=== PATIENT | female | born 1955 | race Caucasian/White ===

== ENCOUNTER 2016-12-15 12:46 | Emergency (ER) | payer BC ==
[2016-12-15 14:51] LABS: Basophils % (A) 0 %; CH 28.5; Eosinophils % (A) 0 %; HCT 36.9 % (34.0-46.0); HDW 2.78; HGB 12.3 gm/dL (11.4-16.0); Luc # (Auto) 0.12; Luc % (Auto) 1; Lymphocytes # (A) 0.5 k/uL (1.0-4.8); Lymphocytes % (A) 6 %; MCH 28.8 pg (25.0-35.0); MCHC 33.3 g/dL (31.0-37.0); MCV 86.6 fL (80.0-100.0); Mean Platelet Volume 8.4; Monocytes # (A) 0.3 k/uL (0-1.0); Monocytes % (A) 4 %; Neutrophils # (A) 7.9 k/uL (1.3-7.7); Neutrophils % (A) 89 %; RBC 4.26 m/uL (3.80-5.40); RDW 14.6 % (11.5-15.5); WBC 8.9 k/uL (3.8-10.6); WBC (Perox) 8.72
--- NOTE | 2016-12-15 15:06 | XR ---
EXAMINATION TYPE: XR chest 2V DATE OF EXAM: 12/15/2016 3:03 PM COMPARISON: 12/09/2014 HISTORY: Shortness of breath TECHNIQUE: Frontal and lateral views of the chest are obtained. FINDINGS: Scattered senescent parenchymal changes noted. Hyperinflation compatible with COPD. Port-A-Cath are u nchanged. No evidence for infiltrate. No evidence for atelectasis. Heart size is stable. Mediastinal structures are stable and grossly unremarkable. No evidence for hilar prominence. Degenerative changes dorsal spine. IMPRESSION: 1. No evidence for acute pulmonary disease.
[2016-12-15 15:08] LABS: Calcium 9.4 mg/dL (8.4-10.2); Potassium 4.7 mmol/L (3.5-5.1); Total Bilirubin 0.7 mg/dL (0.2-1.3); Total Protein 6.7 g/dL (6.3-8.2)
--- NOTE | 2016-12-15 15:09 | XR ---
EXAMINATION TYPE: XR abdomen 2V DATE OF EXAM: 12/15/2016 3:03 PM COMPARISON: NONE HISTORY: Pain TECHNIQUE: Single supine KUB image of the abdomen is obtained FINDINGS: Small bowel demonstrates no evidence for dilatation or air fluid levels. Gas and fecal material is seen in non-distended colon. No convincing evidence for pneumoperitoneum. No unusual calcifications. The lung bases are clear. The osseous structures are intact. IMPRESSION: 1. Overall nonobstructive bowel gas pattern.
[2016-12-15 15:29] LABS: Amorphous Sediment,Urine Occasional /hpf; Appearance,Urine Cloudy (Clear); Bacteria,Urine Few /hpf; Bilirubin,Urine Negative (Negative); Glucose,Urine (UA) Negative (Negative); Ketones,Urine Negative (Negative); Leukocyte Esterase,Urine Negative (Negative); Mucus,Urine Rare /hpf; Nitrite,Urine Negative (Negative); PH, Urine 6.5 (5.0-8.0); Particle Count 15728; Protein,Urine Negative (Negative); RBC,Urine 8 /hpf (0-5); Specific Gravity,Urine 1.012 (1.001-1.035); Squamous Epithelial Cell,Urine 5 /hpf (0-4); UA Billing (MACRO vs. MICRO) MICRO; Urobilinogen,Urine <2.0 mg/dL (<2.0); WBC,Urine 7 /hpf (0-5)
--- NOTE | 2016-12-15 15:31 | ED ---
General Adult HPI - General Chief complaint: Nausea/Vomiting/Diarrhea Stated complaint: Vomiting Time Seen by Provider: 12/15/16 14:03 Source: patient Mode of arrival: ambulatory Limitations: no limitations - Related Data Home Medications Medication Instructions Recorded Confirmed Acai Shearer Extract [Acai] 2,000 mg PO QAM 12/15/16 12/15/16 Ascorbic Acid [Vitamin C with Cinthia 500 mg PO QAM 12/15/16 12/15/16 Hips] Calcium Carb/Magnesium Cmb #10 1 tab PO QAM 12/15/16 12/15/16 [Dusty-Mag 500-250 MG Chewable] Docusate [Colace] 100 mg PO QAM 12/15/16 12/15/16 Ginkgo Biloba Mondamin Extract [Ginkgo] 120 mg PO QAM 12/15/16 12/15/16 Gluc/Blake-MSM#1/C/Claudio/Ba/Bor 2 tab PO QAM 12/15/16 12/15/16 [Glucosamine-Chondroitin Tablet] Milk Thistle Extract 1,000 mg PO QAM 12/15/16 12/15/16 Mv,Ca,Min/Folic Acid/Vit K1 1 tab PO QAM 12/15/16 12/15/16 [One-A-Day Women's 50 Plus Tab] Naproxen Sodium [Aleve] 220 mg PO BID 12/15/16 12/15/16 Occuvite 1 cap PO QAM 12/15/16 12/15/16 [place] 3-6-9 1,500 mg PO QAM 12/15/16 12/15/16 Omeprazole 20 mg PO QAM 12/15/16 12/15/16 Vitamin E With Selenium 400 units PO QAM 12/15/16 12/15/16 amLODIPine [Norvasc] 5 mg PO QAM 12/15/16 12/15/16 Previous Rx's Medication Instructions Recorded Ciprofloxacin HCl [Cipro] 500 mg PO Q12HR #14 tablet 12/15/16 Trimethobenzamide [Tigan] 300 mg PO TID PRN #6 capsule 12/15/16 Allergies Allergy/AdvReac Type Severity Reaction Status Date / Time latex Allergy Rash/Hives Verified 12/15/16 14:20 Review of Systems ROS Statement: Those systems with pertinent positive or pertinent negative responses have been documented in the HPI. ROS Other: All systems not noted in ROS Statement are negative. Past Medical History Past Medical History: Cancer, GERD/Reflux, Hypertension, Osteoarthritis (OA), Sleep Apnea/CPAP/BIPAP Additional Past Medical History / Comment(s): DX WITH UTERINE CA, hiatal hernia , uses CPAP. Chemotherapy and radiation initiated in 2014. Radiation implant surgically implanted in uterus in January 2015 History of Any Multi-Drug Resistant Organisms: None Reported Past Surgical History: Bladder Surgery, Section, Cholecystectomy, Hysterectomy, Orthopedic Surgery Additional Past Surgical History / Comment(s): HEMORROIDECTOMY, RT ANKLE ORIF WITH PIN, bladder suspension, rectocele repair Past Anesthesia/Blood Transfusion Reactions: Motion Sickness Past Psychological History: No Psychological Hx Reported Smoking Status: Former smoker Past Alcohol Use History: Rare Past Drug Use History: None Reported - Past Family History Mother Sister(s) Family Medical History: Cancer Father Brother(s) Family Medical History: Cancer General Exam Limitations: no limitations Course Vital Signs 12/15/16 12:57 Temperature 99.2 F Pulse Rate 102 H Respiratory 18 Rate Blood Pressure 177/78 O2 Sat by Pulse 95 Oximetry Medical Decision Making - Medical Decision Making Lab workup is negative x-rays are satisfactory at this point do not believe we need to do a computed tomography scan history suggestive of mild diverticulitis we'll treat with Cipro follow-up with her doctor in 2-3 days return if worse and would do a CT if worsening or no of a white count. - Lab Data Result diagrams: 12/15/16 14:45 12/15/16 14:45 Lab Results 12/15/16 12/15/16 12/15/16 Range/Units 14:45 14:45 15:14 WBC 8.9 (3.8-10.6) k/uL RBC 4.26 (3.80-5.40) m/uL Hgb 12.3 (11.4-16.0) gm/dL Hct 36.9 (34.0-46.0) % MCV 86.6 (80.0-100.0) fL MCH 28.8 (25.0-35.0) pg MCHC 33.3 (31.0-37.0) g/dL RDW 14.6 (11.5-15.5) % Plt Count 128 L (150-450) k/uL Neutrophils % 89 % Lymphocytes % 6 % Monocytes % 4 % Eosinophils % 0 % Basophils % 0 % Neutrophils # 7.9 H (1.3-7.7) k/uL Lymphocytes # 0.5 L (1.0-4.8) k/uL Monocytes # 0.3 (0-1.0) k/uL Eosinophils # 0.0 (0-0.7) k/uL Basophils # 0.0 (0-0.2) k/uL Sodium 140 (137-145) mmol/L Potassium 4.7 (3.5-5.1) mmol/L Chloride 105 (98-107) mmol/L Carbon Dioxide 24 (22-30) mmol/L Anion Gap 11 mmol/L BUN 26 H (7-17) mg/dL Creatinine 1.15 H (0.52-1.04) mg/dL Est GFR (MDRD) Af Amer 58 (>60 ml/min/1.73 sqM) Est GFR (MDRD) Non-Af 48 (>60 ml/min/1.73 sqM) Glucose 116 H (74-99) mg/dL Calcium 9.4 (8.4-10.2) mg/dL Total Bilirubin 0.7 (0.2-1.3) mg/dL AST 29 (14-36) U/L ALT 28 (9-52) U/L Alkaline Phosphatase 123 (38-126) U/L Total Protein 6.7 (6.3-8.2) g/dL Albumin 3.8 (3.5-5.0) g/dL Amylase 36 (30-110) U/L Lipase 25 (23-300) U/L Urine Color Yellow Urine Appearance Cloudy H (Clear) Urine pH 6.5 (5.0-8.0) Ur Specific [place] 1.012 (1.001-1.035) Urine Protein Negative (Negative) Urine Glucose (UA) Negative (Negative) Urine Ketones Negative (Negative) Urine Blood Trace H (Negative) Urine Nitrate Negative (Negative) Urine Bilirubin Negative (Negative) Urine Urobilinogen <2.0 (<2.0) mg/dL Ur Leukocyte Esterase Negative (Negative) Urine RBC 8 H (0-5) /hpf Urine WBC 7 H (0-5) /hpf Ur Squamous Epith Cells 5 H (0-4) /hpf Amorphous Sediment Occasional H (None) /hpf Urine Bacteria Few H (None) /hpf Urine Mucus Rare H (None) /hpf - Radiology Data Radiology results: report reviewed Chest x-ray no significant abnormalities, no calcifications or obstruction on the abdominal film Disposition Clinical Impression: Diverticulitis Disposition: HOME SELF-CARE Condition: Good Instructions: Acute Nausea and Vomiting (ED), Diverticulitis (ED) Prescriptions: Ciprofloxacin HCl [Cipro] 500 mg PO Q12HR #14 tablet Trimethobenzamide [Tigan] 300 mg PO TID PRN #6 capsule PRN Reason: Nausea Referrals: Gala Hogue MD [Primary Care Provider] - 1-2 days Time of Disposition: 15:42
[2016-12-15 16:08] VITALS: BP 160/67; PULSE 94; RESP 14; TEMP 98.4
== END 2016-12-15 16:08 | disposition home or self-care (01) ==
LOC: EC 12:46
DX: K57.92 Diverticulitis of intestine, part unspecified, without perforation or abscess without bleeding (principal); I10 Essential (primary) hypertension; K44.9 Diaphragmatic hernia without obstruction or gangrene; Z79.899 Other long term (current) drug therapy; Z85.42 Personal history of malignant neoplasm of other parts of uterus; Z92.3 Personal history of irradiation; Z92.21 Personal history of antineoplastic chemotherapy; Z87.891 Personal history of nicotine dependence; Z91.040 Latex allergy status
CPT/HCPCS: 36415; 71020; 74020; 80053; 81001; 82150; 83690; 85025; 87077; 87086; 87186; 99285

== ENCOUNTER → 2017-03-11 | Outpatient (CLI) | payer MEDICARE ==
--- NOTE | 2017-03-12 09:15 | MM ---
Reason for exam: screening (asymptomatic). Last mammogram was performed 1 year and 6 months ago. History: Patient is postmenopausal, has history of endometrial cancer at age 59, and had first child at age 32. Family history of breast cancer in sister at age 49, breast cancer in sister at age 37, breast cancer in brother at age 62, and premenopausal breast cancer in mother at age 40. Stereotactic core biopsy of the right breast, March 15, 2004. Core biopsy of the right breast. Physical Findings: A clinical breast exam by your physician is recommended on an annual basis and results should be correlated with mammographic findings. MG 3D Screening Mammo W/Cad Bilateral CC and MLO view(s) were taken. Prior study comparison: September 11, 2015, bilateral MG screening mammo w CAD. July 25, 2014, bilateral MG screening mammo w CAD. The breast tissue is almost entirely fat. No significant changes when compared with prior studies. ASSESSMENT: Benign, BI-RAD 2 RECOMMENDATION: Routine screening mammogram of both breasts in 1 year.
== END | disposition home or self-care (01) ==
LOC: RADMAMWWP 11:32
PROVIDERS: ATTEND Internal Medicine
DX: Z12.31 Encounter for screening mammogram for malignant neoplasm of breast (principal)
CPT/HCPCS: 77063; G0202

== ENCOUNTER → 2017-04-17 | Outpatient (CLI) | payer MEDICARE ==
--- NOTE | 2017-04-18 07:41 | XR ---
Right knee HISTORY: Pain 3 views of the right knee No comparisons Bone mineralization, joint spaces and alignment are relatively maintained, mild joint space loss susp ected in the medial compartment. No sizable joint effusion. No fracture or dislocation. Soft tissues are normal. IMPRESSION: No acute abnormality. Mild osteoarthritic change suspected.
== END ==
LOC: RADXRYALE 13:41
PROVIDERS: ATTEND Internal Medicine
DX: M25.561 Pain in right knee (principal)

== ENCOUNTER → 2018-07-14 | Outpatient (CLI) | payer MEDICARE, BC ==
--- NOTE | 2018-07-15 09:17 | MM ---
Reason for exam: screening (asymptomatic). Last mammogram was performed 1 year and 4 months ago. History: Patient is postmenopausal, has history of endometrial cancer at age 59, and had first child at age 32. Family history of breast cancer in sister at age 49, breast cancer in sister at age 37, breast cancer in brother at age 62, and premenopausal breast cancer in mother at age 40. Stereotactic core biopsy of the right breast, March 15, 2004. Core biopsy of the right breast. Physical Findings: A clinical breast exam by your physician is recommended on an annual basis and results should be correlated with mammographic findings. MG 3D Screening Mammo W/Cad Bilateral CC and MLO view(s) were taken. Prior study comparison: March 11, 2017, bilateral MG 3d screening mammo w/cad. September 11, 2015, bilateral MG screening mammo w CAD. There are scattered fibroglandular densities. There is no discrete abnormality. No significant changes when compared with prior studies. ASSESSMENT: Negative, BI-RAD 1 RECOMMENDATION: Routine screening mammogram of both breasts in 1 year.
== END | disposition home or self-care (01) ==
LOC: RADMAMWWP 10:56
PROVIDERS: ATTEND Internal Medicine
DX: Z12.31 Encounter for screening mammogram for malignant neoplasm of breast (principal)
CPT/HCPCS: 77063; 77067

== ENCOUNTER → 2019-02-10 | Outpatient (CLI) | payer MEDICARE, BC ==
--- NOTE | 2019-02-10 16:36 | XR ---
Right knee HISTORY: Right knee pain 3 views of the right knee Bone mineralization and alignment are maintained. There is mild joint space loss in the medial compar tment with marginal spurring. No evident joint effusion. IMPRESSION: Suspect some mild osteoarthritis.
== END | disposition home or self-care (01) ==
LOC: RADXRYALE 15:12
PROVIDERS: ATTEND Internal Medicine
DX: M17.11 Unilateral primary osteoarthritis, right knee (principal)

== ENCOUNTER → 2019-05-12 | Outpatient (CLI) | payer MEDICARE, BC ==
--- NOTE | 2019-05-12 09:57 | US ---
EXAMINATION TYPE: US abdomen complete DATE OF EXAM: 05/12/2019 COMPARISON: CT 08/05/2014 CLINICAL HISTORY: R10.9 abdominal pain, nausea. Cholecystectomy. Patient is morbidly obese EXAM MEASUREMENTS: Liver Length: 14.3 cm Gallbladder Wall: Surgically absent CBD: 0.4 cm Spleen: 13.0 cm Right Kidney: 10.3 x 4.5 x 4.8 cm Left Kidney: 10.3 x 4.2 x 3.8 cm Pancreas: wnl Liver: Heterogeneous Gallbladder: Surgically absent Evidence for sonographic Pappas's sign: No CBD: wnl as visualized, distal portion obscured by bowel gas Spleen: Measuring upper limits of normal Right Kidney: No hydronephrosis or masses seen Left Kidney: No hydronephrosis or masses seen Upper IVC: wnl Abd Aorta: No sonographic evidence for AAA. Limited exam due to overlying bowel gas The liver is heterogeneous which mass or ductal dilatation on images saved. The intrahepatic portion of the IVC and visualized portion of abdominal aorta are within normal limits. Common bile duct is u nremarkable. The visualized portions of the pancreas are homogenous. The spleen is measuring upper limits of normal. Kidneys are symmetric and free of hydronephrosis. No renal lesions are seen. IMPRESSION: Suboptimal study without suspicious acute finding identified.
== END | disposition home or self-care (01) ==
LOC: RADUSWWP 07:56
PROVIDERS: ATTEND Internal Medicine
DX: R10.9 Unspecified abdominal pain (principal)
CPT/HCPCS: 76700

== ENCOUNTER → 2019-07-20 | Outpatient (CLI) | payer MEDICARE, BC ==
--- NOTE | 2019-07-21 11:32 | MM ---
Reason for exam: screening (asymptomatic). Last mammogram was performed 1 year ago. History: Patient is postmenopausal, has history of endometrial cancer at age 59, and had first child at age 32. Family history of breast cancer in sister at age 49, breast cancer in sister at age 37, breast cancer in brother at age 62, and premenopausal breast cancer in mother at age 40. Stereotactic core biopsy of the right breast, March 15, 2004. Core biopsy of the right breast. Physical Findings: A clinical breast exam by your physician is recommended on an annual basis and results should be correlated with mammographic findings. MG 3D Screening Mammo W/Cad Bilateral CC, MLO, and XCCL view(s) were taken. Prior study comparison: July 14, 2018, bilateral MG 3d screening mammo w/cad. March 11, 2017, bilateral MG 3d screening mammo w/cad. There are scattered fibroglandular densities. There are benign appearing round calcifications bilaterally. There is no discrete abnormality. ASSESSMENT: Benign, BI-RAD 2 RECOMMENDATION: Routine screening mammogram of both breasts in 1 year.
== END | disposition home or self-care (01) ==
LOC: RADMAMWWP 09:51
PROVIDERS: ATTEND Internal Medicine
DX: Z12.31 Encounter for screening mammogram for malignant neoplasm of breast (principal)
CPT/HCPCS: 77063; 77067

== ENCOUNTER → 2019-08-12 | Outpatient (CLI) | payer MEDICARE, BC | END | disposition home or self-care (01) | LOC: RADMRIMAIN 07:49 | PROVIDERS: ATTEND Nurse Practitioner | DX: Z53.9 Procedure and treatment not carried out, unspecified reason (principal) ==

== ENCOUNTER → 2019-09-13 | Outpatient (CLI) | payer MEDICARE, BC ==
--- NOTE | 2019-09-13 16:08 | FL ---
EXAMINATION TYPE: FL small bowel follow through DATE OF EXAM: 09/13/2019 2:58 PM COMPARISON: NONE HISTORY: Abdominal Pain Coronary film of the abdomen demonstrates left renal calculus measuring 6.3 mm. The patient ingested thin liquid barium without difficulty. Small bowel follow-through was performed with transit time of 3hr 20 minutes. Small bowel loops appear to be of normal caliber and demonstrate normal mucosal fol d pattern. No evidence for intrinsic or extrinsic mass. No evidence for mucosal abnormality. I do not see evidence for Crohn's disease. Normal-appearing terminal ileum. IMPRESSION: Unremarkable study
== END | disposition home or self-care (01) ==
LOC: RADFLMAIN 09:33
PROVIDERS: ATTEND Internal Medicine Gastroenterology
DX: R93.89 Abnormal findings on diagnostic imaging of other specified body structures (principal)
CPT/HCPCS: 74250

== ENCOUNTER → 2019-11-17 | Outpatient (CLI) | payer MEDICARE, BC ==
[2019-11-18 13:24] LABS: Cow's Milk IgE Class CLASS 0; Egg White IgE <0.10 kU/L (<0.10); Peanut IgE <0.10 kU/L (<0.10); Potato IgE <0.10 kU/L (<0.10); Potato IgE Class CLASS 0; Soybean IgE <0.10 kU/L (<0.10)
== END | disposition home or self-care (01) ==
LOC: LABWHC1 13:57
PROVIDERS: ATTEND Otolaryngology
DX: J30.89 Other allergic rhinitis (principal); Z91.018 Allergy to other foods
CPT/HCPCS: 36415; 86003

== ENCOUNTER → 2020-01-03 | Outpatient (CLI) | payer MEDICARE, BC | END | disposition home or self-care (01) | DX: R10.9 Unspecified abdominal pain (principal) | CPT/HCPCS: 36415; 80053 ==

== ENCOUNTER → 2020-04-19 | Outpatient (CLI) | payer MEDICARE, BC ==
--- NOTE | 2020-04-19 15:34 | XR ---
EXAMINATION TYPE: XR shoulder limited bilateral DATE OF EXAM: 04/19/2020 COMPARISON: NONE HISTORY: Pain TECHNIQUE: 2 views of each shoulder are submitted. FINDINGS: There is mild hypertrophic change of the AC joint. No acute fracture. There is no dislocati on. Hypertrophic changes are slightly greater on the left. Visualized lung benjamin and rib cage demons trate no abnormality. IMPRESSION: 1. Bilateral AC joint arthropathy. Correlate with MRI as clinically warranted if there is concern for rotator cuff disease.
== END | disposition home or self-care (01) ==
LOC: RADXRYALE 15:09
PROVIDERS: ATTEND Internal Medicine
DX: M19.011 Primary osteoarthritis, right shoulder (principal); M19.012 Primary osteoarthritis, left shoulder

== ENCOUNTER → 2020-12-07 | Outpatient (CLI) | payer MEDICARE, BC ==
--- NOTE | 2020-12-11 09:16 | MM ---
Reason for exam: screening (asymptomatic). Last mammogram was performed 1 year and 5 months ago. History: Patient is postmenopausal, has history of endometrial cancer at age 59, and had first child at age 32. Family history of breast cancer in sister at age 49, breast cancer in sister at age 37, breast cancer in brother at age 62, and premenopausal breast cancer in mother at age 40. Stereotactic core biopsy of the right breast, March 15, 2004. Core biopsy of the right breast. Physical Findings: A clinical breast exam by your physician is recommended on an annual basis and results should be correlated with mammographic findings. MG 3D Screening Mammo W/Cad Bilateral CC and MLO view(s) were taken. Prior study comparison: July 20, 2019, bilateral MG 3d screening mammo w/cad. July 14, 2018, bilateral MG 3d screening mammo w/cad. There are scattered fibroglandular densities. No significant changes when compared with prior studies. ASSESSMENT: Benign, BI-RAD 2 RECOMMENDATION: Routine screening mammogram of both breasts in 1 year.
== END | disposition home or self-care (01) ==
LOC: RADMAMWWP 15:37
PROVIDERS: ATTEND Internal Medicine
DX: Z12.31 Encounter for screening mammogram for malignant neoplasm of breast (principal)
CPT/HCPCS: 77063; 77067

== ENCOUNTER → 2022-02-20 | Outpatient (CLI) | payer MEDICARE, BC ==
--- NOTE | 2022-02-22 10:46 | MM ---
Reason for exam: screening (asymptomatic). Last mammogram was performed 1 year and 2 months ago. History: Patient is postmenopausal, has history of endometrial cancer at age 59, and had first child at age 32. Family history of breast cancer in sister at age 49, breast cancer in sister at age 37, breast cancer in brother at age 62, and premenopausal breast cancer in mother at age 40. Stereotactic core biopsy of the right breast, March 15, 2004. Core biopsy of the right breast. Physical Findings: A clinical breast exam by your physician is recommended on an annual basis and results should be correlated with mammographic findings. MG 3D Screening Mammo W/Cad Bilateral CC and MLO view(s) were taken. Prior study comparison: December 07, 2020, bilateral MG 3d screening mammo w/cad. July 20, 2019, bilateral MG 3d screening mammo w/cad. The breast tissue is heterogeneously dense. This may lower the sensitivity of mammography. There is no discrete abnormality. No significant changes when compared with prior studies. ASSESSMENT: Negative, BI-RAD 1 RECOMMENDATION: Routine screening mammogram of both breasts in 1 year.
== END | disposition home or self-care (01) ==
LOC: RADMAMWWP 11:19
PROVIDERS: ATTEND Internal Medicine
DX: Z12.31 Encounter for screening mammogram for malignant neoplasm of breast (principal); Z78.0 Asymptomatic menopausal state; Z80.3 Family history of malignant neoplasm of breast; Z85.42 Personal history of malignant neoplasm of other parts of uterus
CPT/HCPCS: 77063; 77067

== ENCOUNTER → 2023-03-26 | Outpatient (CLI) | payer MEDICARE, BC ==
--- NOTE | 2023-03-26 14:21 | MM ---
Reason for Exam: Screening (asymptomatic). Last mammogram was performed 1 year(s) and 1 month(s) ago. Patient History: Menarche at age 12. First Full-Term at age 32. Late child-bearing (after 30). Left ovary removed at age 59. Right ovary removed at age 59. Hysterectomy at age 59. Postmenopausal. Patient has history of breast feeding. Core Biopsy on the Right side. 03/15/2004, Stereotactic Core Biopsy on the Right side. Sister had breast cancer, age 49. Sister had breast cancer, age 37. Brother had breast cancer, age 62. Mother had breast cancer, age 40. Risk Values: Moira 5 year model risk: 6.9%. NCI Lifetime model risk: 19.8%. Prior Study Comparison: 07/20/2019 Bilateral Screening Mammogram, [facility]. 12/07/2020 Bilateral Screening Mammogram, [facility]. 02/20/2022 Bilateral Screening Mammogram, [facility]. Tissue Density: There are scattered fibroglandular densities. Findings: Analyzed By CAD. There is no suspicious group of microcalcifications or new suspicious mass in either breast. Overall Assessment: Negative, BI-RAD 1 Management: Screening Mammogram of both breasts in 1 year. A clinical breast exam by your physician is recommended on an annual basis and results should be correlated with mammographic findings. Electronically signed and approved by: Edgar Stallings D.O.
== END | disposition home or self-care (01) ==
LOC: RADMAMWWP 13:27
PROVIDERS: ATTEND Internal Medicine
DX: Z12.31 Encounter for screening mammogram for malignant neoplasm of breast (principal); Z78.0 Asymptomatic menopausal state; Z80.3 Family history of malignant neoplasm of breast
CPT/HCPCS: 77063; 77067

== ENCOUNTER → 2024-04-12 | Outpatient (CLI) | payer MEDICARE, BC ==
--- NOTE | 2024-04-13 13:47 | BD ---
EXAMINATION TYPE: Axial Bone Density DATE OF EXAM: 04/12/2024 CLINICAL HISTORY: 68 years old Female. ICD-10 CODE: N95.8 MENOPAUSAL Height: 59.5 Weight: 268.5 FRAX RISK QUESTIONS: Alcohol (3 or more units per day): no Family History (Parent hip fracture): no Glucocorticoids (More than 3mos): no (Ex: prednisone, prednisolone, methylprednisolone, dexamethasone, and hydrocortisone). History of Fracture in Adulthood: yes, ankle Secondary Osteoporosis: 1. Type 1 Diabetes: no 2. Hyperthyroidism: no 3. Menopause before 45: no 4. Malnutrition: no 5. Chronic liver disease: no Rheumatoid Arthritis: no Current Tobacco Use: no RISK FACTORS HISTORY OF: Hip Fracture (Right/Left): no Spine Fracture: no History of Wrist Fracture: no Surgery to Spine/Hip(right/left)/Wrist (right/left): no MEDICATIONS: Thyroid Medications: no Osteoporosis Medications: no EXAM MEASUREMENTS: Bone mineral densitometry was performed using the [employer]isimo System. Bone mineral density as measured about the Lumbar spine is: ----- L1-L4(G/cm2): 1.217 T Score Values are as follows: ----- L1: -0.2 ----- L2: -0.5 ----- L3: 0.0 ----- L4: 1.6 ----- L1-L4: 0.3 Z Score Values are as follows: ----- L1: 0.3 ----- L2: 0.0 ----- L3: 0.5 ----- L4: 2.1 ----- L1-L4: 0.8 Baseline Study Bone mineral density about the R hip (g/cm2): 0.749 Bone mineral density about the L hip (g/cm2): 0.661 T Score values are as follows: -----R Neck: -2.6 -----L Neck: -2.8 -----R Total: -2.1 -----L Total: -2.8 Z Score values are as follows: -----R Neck: -1.7 -----L Neck: -1.8 -----R Total: -1.4 -----L Total: -2.1 Baseline Study FRAX%s: The graph provided illustrates a 13.2% chance for a major osteoporotic fx and a 3.5% chance f or the hips probability for fx in 10 years time. IMPRESSION: Osteoporosis (T Score less than -2.5). There is increased fracture risk and therapy is usually indicated based on age. Re-Screen 1-2 years. NOTE: T-SCORE=SD OF THE YOUNG ADULT MEAN.
--- NOTE | 2024-04-14 10:38 | MM ---
Reason for Exam: Screening (asymptomatic). Last screening mammogram was performed 12 month(s) ago. Patient History: Menarche at age 12. First Full-Term at age 32. Late child-bearing (after 30). Left ovary removed at age 59. Right ovary removed at age 59. Hysterectomy at age 59. Postmenopausal. Patient has history of breast feeding. Core Biopsy on the Right side. 03/15/2004, Stereotactic Core Biopsy on the Right side. Sister had breast cancer, age 49. Sister had breast cancer, age 37. Brother had breast cancer, age 62. Mother had breast cancer, age 40. Risk Values: Moira 5 year model risk: 6.9%. NCI Lifetime model risk: 18.9%. Prior Study Comparison: 12/07/2020 Bilateral Screening Mammogram, [facility]. 02/20/2022 Bilateral Screening Mammogram, [facility]. 03/26/2023 Bilateral MG 3D screening mammo w/cad, [facility]. Tissue Density: The breasts are almost entirely fatty. Findings: Analyzed By CAD. Right breast: There is no suspicious group of microcalcifications or new suspicious mass. Left breast: There is no suspicious group of microcalcifications or new suspicious mass. Overall Assessment: Negative, BI-RAD 1 Management: Screening Mammogram of both breasts in [address] [facility] will attempt to contact patient to return for supplemental views and ultrasound if indicated. Patient should continue monthly self-breast exams. A clinical breast exam by your physician is recommended on an annual basis. This exam should not preclude additional follow-up of suspicious palpable abnormalities. Note on Moira scores and lifetime risk: 1. A Moira score greater than 3% is considered moderate risk. If this is the case, consider specialist referral to assess eligibility for a risk reducing agent. 2. If overall lifetime risk for the development of breast cancer is 20% or higher, the patient may qualify for future screening with alternating mammogram and breast MRI. Electronically signed and approved by: Ken Sellers DO
== END | disposition home or self-care (01) ==
LOC: RADMAMWWP 12:39
PROVIDERS: ATTEND Internal Medicine
DX: Z12.31 Encounter for screening mammogram for malignant neoplasm of breast (principal); N95.8 Other specified menopausal and perimenopausal disorders; M85.88 Other specified disorders of bone density and structure, other site; Z78.0 Asymptomatic menopausal state; Z80.3 Family history of malignant neoplasm of breast
CPT/HCPCS: 77063; 77067; 77080

== ENCOUNTER 2024-04-14 05:51 | Day surgery (SDC) | payer MEDICARE, BC ==
[2024-04-14] MEDS ORDERED: LIDOCAINE 1% (10MG/ML) FOR IV START INTRADERMA PRN (06:16)
[2024-04-14] MEDS: IV FLUID CONTINUATION 1,000 ML IV ONE ×2 (06:35→06:56)
[2024-04-14 06:40] VITALS: TEMP 98
[2024-04-14] MEDS: LACTATED RINGERS 1,000 ML IV SCH (06:45)
[2024-04-14] MEDS ORDERED: PROPOFOL 10 MG/ML 20 ML VIAL IV ONE (06:58)
--- NOTE | 2024-04-14 07:34 | P.PCN ---
Date of Procedure: 04/14/24 Procedure(s) Performed: Brief history: Patient is a pleasant 68-year-old white female scheduled for an elective upper endoscopy as well as colonoscopy as a part of evaluation of GERD and prior history of colon polyps Procedure performed: Esophagogastroduodenoscopy biopsy Colonoscopy with snare polypectomy Preoperative diagnosis: History of GERD History of colon polyps Anesthesia: MAC Procedure: After informed consent was obtained from the patient was brought into the endoscopy unit and IV sedation was administered by anesthesia under continuous monitoring. Initially upper endoscopy was done. The Olympus GF 160 video endoscope was inserted inserted into the mouth and esophagus intubated without any difficulty and was gradually advanced into the stomach and duodenum and carefully examined. The bulb and second part of the duodenum appeared normal. The scope was then withdrawn into the stomach adequately insufflated with air and upon careful examination the antrum and body, cardia and fundus appeared normal. Multiple small gastric polyps noted which were biopsied. The scope was then withdrawn into the esophagus. The GE junction was located at 40 cm to the incisors. It appeared regular with no erythema erosions or ulcerations. Rest of the esophagus appeared normal. Patient tolerated the procedure well. At this time the patient continued to remain sedation. Initial digital rectal examination was normal. Olympus CF 160 video colonoscope was then inserted into the rectum and gradually advanced to the cecum without any difficulty. Careful examination was performed as the scope was gradually being withdrawn. The prep was excellent. The cecum, had a 5 mm polyp that was removed by cold biopsy. In the ascending colon there was a 5 mm and 1.5 cm polyp that was removed by snare polypectomy. In the transverse colon there were 2 polyps measuring 5 mm in size both of which were removed by snare polypectomy. Rest of the ascending colon, transverse colon, descending colon, sigmoid colon and rectum appeared normal. Retroflexion was performed in the rectum and no lesions were noted. Patient tolerated the procedure well. Impression: 1. Upper endoscopy revealed multiple small gastric polyps s/p biopsy but no evidence of esophagitis or peptic ulcer disease 2. Colonoscopy revealed a) 5 millimeter cecal polyp status post cold biopsy b) 5 millimeter and 1.5 cm ascending colon polyp status post polypectomy c) 5 mm x 2 transverse colon polyp status post snare polypectomy Recommendations: Findings of this examination were discussed with the patient as well as her family. She was advised to follow-up with the biopsy results. If the biopsy reveals adenoma she can have repeat colonoscopy in 3 years.
[2024-04-14 07:40] VITALS: RESP 16
[2024-04-14 08:01] VITALS: BP 113/74; PULSE 63
== END 2024-04-14 08:10 | disposition home or self-care (01) ==
LOC: ORWHC2ENDO 05:51
PROVIDERS: ATTEND Internal Medicine Gastroenterology
DX: Z12.11 Encounter for screening for malignant neoplasm of colon (principal); D12.0 Benign neoplasm of cecum; D12.2 Benign neoplasm of ascending colon; D12.3 Benign neoplasm of transverse colon; K31.7 Polyp of stomach and duodenum; K21.9 Gastro-esophageal reflux disease without esophagitis; M19.90 Unspecified osteoarthritis, unspecified site; E66.01 Morbid (severe) obesity due to excess calories; Z86.010 Personal history of colon polyps; Z98.890 Other specified postprocedural states; Z85.41 Personal history of malignant neoplasm of cervix uteri; Z91.040 Latex allergy status; Z79.899 Other long term (current) drug therapy; Z68.43 Body mass index [BMI] 50.0-59.9, adult
CPT/HCPCS: 45380; 45385; 43239; J2704; 88305

== ENCOUNTER → 2025-05-03 | Outpatient (CLI) | payer MEDICARE, BC ==
--- NOTE | 2025-05-03 10:09 | MM ---
Reason for Exam: Screening (asymptomatic). Last mammogram was performed 1 year(s) and 1 month(s) ago. Patient History: Menarche at age 12. First Full-Term at age 32. Late child-bearing (after 28). Left ovary removed at age 59. Right ovary removed at age 59. Hysterectomy at age 59. Postmenopausal. Patient has history of breast feeding. Core Biopsy on the Right side. 03/15/2004, Stereotactic Core Biopsy on the Right side. Sister had breast cancer, age 49. Sister had breast cancer, age 37. Brother had breast cancer, age 62. Mother had breast cancer, age 40. Sister tested for BRCA1 outcome was positive. Sister tested for BRCA2 outcome was positive. Risk Values: Moira 5 year model risk: 7.0%. NCI Lifetime model risk: 18.1%. Prior Study Comparison: 03/11/2017 Bilateral Screening Mammogram, [facility]. 07/14/2018 Bilateral Screening Mammogram, [facility]. 07/20/2019 Bilateral Screening Mammogram, [facility]. 12/07/2020 Bilateral Screening Mammogram, [facility]. 02/20/2022 Bilateral Screening Mammogram, [facility]. 03/26/2023 Bilateral MG 3D screening mammo w/cad, [facility]. 04/12/2024 Bilateral MG 3D screening mammo w/cad, [facility]. Tissue Density: There are scattered areas of fibroglandular density. Findings: Analyzed By CAD. There is no suspicious group of microcalcifications or new suspicious mass in either breast. Overall Assessment: Negative, BI-RAD 1 Management: Screening Mammogram of both breasts in 1 year. . Patient should continue monthly self-breast exams. A clinical breast exam by your physician is recommended on an annual basis. This exam should not preclude additional follow-up of suspicious palpable abnormalities. Note on Moira scores and lifetime risk: 1. A Moira score greater than 3% is considered moderate risk. If this is the case, consider specialist referral to assess eligibility for a risk reducing agent. 2. If overall lifetime risk for the development of breast cancer is 20% or higher, the patient may qualify for future screening with alternating mammogram and breast MRI. [facility], Workstation: 3, 05/03/2025 10:06 AM. Electronically signed and approved by: Albert Luna M.D. Radiolog[facility]
== END | disposition home or self-care (01) ==
LOC: RADMAMWWP 09:31
PROVIDERS: ATTEND Internal Medicine
DX: Z12.31 Encounter for screening mammogram for malignant neoplasm of breast (principal); R92.323 Mammographic fibroglandular density, bilateral breasts; Z80.3 Family history of malignant neoplasm of breast; Z78.0 Asymptomatic menopausal state
CPT/HCPCS: 77063; 77067